=== PATIENT | female | born 1945 | race Caucasian/White ===

== ENCOUNTER 2019-11-06 05:36 | Outpatient (RCR) | payer MEDICARE, MEDICAID, SELFPAY ==
[2019-11-05 12:33] LABS: Basophils # 0.1 10^3/uL (0.0-0.1); Eosinophils # 0.3 10^3/uL (0.0-0.8); Eosinophils % 5.8 %; Hemoglobin 11.8 g/dL (11.5-15.3); Lymphocytes # 1.6 10^3/uL (0.8-4.8); Lymphocytes % 32.8 %; Mean Corpuscular HGB Conc 32.8 g/dL (30.0-36.0); Mean Corpuscular Hemoglobin 32.1 pg (28.0-34.0); Mean Corpuscular Volume 97.8 fL (81-99); Mean Platelet Volume 12.1 fL (7.4-10.4); Monocytes # 0.4 10^3/uL (0.2-0.9); Monocytes % 8.4 %; Neutrophils # 2.5 10^3/uL (1.8-7.7); Neutrophils % 51.8 %; Nucleated Red Blood Cells % 0 %; Platelet Count 44 10^3/cmm (130-400); Red Blood Count 3.68 10^6/uL (4.1-5.3); Red Cell Distribution Width 22.5 % (12.1-15.1); White Blood Count 4.8 10^3/uL (4.0-10.0)
== END 2019-11-07 23:59 | disposition home or self-care (01) ==
LOC: ONCMED 05:36
PROVIDERS: Family Provider Family Medicine; PCP Family Medicine; Visit Provider Internal Medicine Hematology & Oncology
DX: D69.6 Thrombocytopenia, unspecified (principal); J43.9 Emphysema, unspecified; F17.210 Nicotine dependence, cigarettes, uncomplicated; M40.209 Unspecified kyphosis, site unspecified; I51.7 Cardiomegaly; K44.9 Diaphragmatic hernia without obstruction or gangrene; I72.8 Aneurysm of other specified arteries; I71.4 Abdominal aortic aneurysm, without rupture; K74.60 Unspecified cirrhosis of liver; R18.8 Other ascites; N26.1 Atrophy of kidney (terminal); I50.9 Heart failure, unspecified; Z79.82 Long term (current) use of aspirin; Z95.1 Presence of aortocoronary bypass graft; Z87.01 Personal history of pneumonia (recurrent)
CPT/HCPCS: 85025; G0463

== ENCOUNTER 2019-11-08 02:07 | Emergency (ER) | payer MEDICARE, MEDICAID, SELFPAY ==
[2019-11-08 02:08] VITALS: BP 152/85; PULSE 56; RESP 20; TEMP 36.5; O2SAT 97; BMI 19.5
--- NOTE | 2019-11-08 02:13 | ED_ITS ---
Entered by Radha Fofana, acting as scribe for Homer Crespo DO Nov 08, 2019 02:07 HPI - Fall General: Chief Complaint: Fall Stated Complaint: FALL Time Seen by Provider: 11/08/19 02:13 Source: patient Mode of arrival: EMS Limitations: no limitations History of Present Illness: HPI Narrative: 74 yo f came to the er by [facility]. Onset was tonight. Pt states that she fell and hit her rt elbow and the top of her head. Pt states that she is not having a headache at this time. MD complaint: fall Onset (ago): day(s) (tonight) Fall from: out of bed Fall witnessed: no Place fall occurred: home Loss of consciousness: None Prolonged down time: unclear Symptoms prior to fall: none Location of injury: head and other (right elbow) Location of injury - extremities: Right: elbow Severity: mild Quality: burning and sharp Associated symptoms-after fall: Reports no associated symptoms; Denies abdominal pain, chest pain, headache(s), hematuria or neck pain Review of Systems Const: Denies: fever or chills Eyes: Denies: change in vision or blurry vision ENMT: Denies: dental pain Card: Reports: swelling of feet/ankles; Denies: chest pain, palpitations, irregular heart rhythm, edema, shortness of breath on exertion or shortness of breath when lying down Resp: Denies: shortness of breath, productive cough, non-productive cough or wheezing GI: Denies: abdominal pain, nausea, vomiting or rectal pain : Denies: painful urination or blood in urine Musc: Denies: neck pain, back pain, redness or joint warmth Skin/Breast: Denies: rash, itching or redness Neuro: Denies: headache Psych: Denies: anxiety, visual hallucinations or auditory hallucinations PFSH ED PFSH: Statuses (acute, chronic, etc) shown below reflect problem list status as previously entered and may not be historically accurate Social History Smoking and tobacco status: current every day smoker Physical Exam Const: ORIENTATION/CONSCIOUSNESS: Yes oriented to person, Yes oriented to place and Yes oriented to time HENMT: COMMON NORMALS: normocephalic, external ears normal and external nose normal HEAD & SCALP: normocephalic, contusion (Swelling to the right temporoparietal) and scalp tenderness FACE & SINUS: normal facial exam NOSE: external nose normal and no nasal discharge EXTERNAL EAR: Yes external ears normal MOUTH: tongue normal THROAT: posterior oropharynx normal; no peritonsillar mass Eye: COMMON NORMALS: PERRL, EOMs intact bilaterally and conjunctivae normal EYELID: eyelids normal CONJUNCTIVA: Yes conjunctivae normal PUPIL: Yes PERRL Neck/C-Spine: GENERAL: No tracheal deviation CERVICAL SPINE: No cervical spine tenderness Chest: COMMONS NORMALS: inspection of chest normal CHEST: No tenderness Resp: COMMON NORMALS: clear to auscultation bilaterally EFFORT & INSPECTION: No tachypneic, No respiratory distress, No retractions, No uses accessory muscles and No tracheal deviation AUSCULTATION: clear to auscultation bilaterally, no rhonchi, no wheezes and lung sounds not diminished Cardio: COMMON NORMALS: regular rate and regular rhythm RATE: regular rate RHYTHM: regular rhythm HEART SOUNDS: no murmurs PERIPHERAL PULSES: radial pulses present GI: INSPECTION: No abdominal distension AUSCULTATION: No hyperactive bowel sounds and No hypoactive bowel sounds PALPATION: No guarding and No rigid PERCUSSION: no dullness to percussion and no tympanic to percussion : COMMON NORMALS: Yes no CVA tenderness BLADDER/KIDNEY EXAM: Yes no CVA tenderness Back/Pelvis: COMMON NORMALS: no CVA tenderness Extremity: NARRATIVE EXTREMITY EXAM: Right elbow mild swelling. Skin avulsion over the lateral posterior elbow. Bleeding controlled. Range of motion is relatively asymptomatic. Neuro: SENSORIUM/ORIENTATION: Yes oriented to person, Yes oriented to place and Yes oriented to time Psych: COMMON NORMALS: mental status grossly normal Skin: COMMON NORMALS: no rashes or lesions noted GENERAL SKIN EXAM: no rashes or lesions noted Course ED course: Elbow x-rays are negative. Wound is cleaned, bandaged, stable. No bleeding to the scalp. Vital Signs: Vital signs: Vital Signs Temperature 97.7 F 11/08/19 02:08 Pulse Rate 51 L 11/08/19 05:08 Respiratory Rate 16 11/08/19 05:08 Blood Pressure 132/70 11/08/19 05:08 Pulse Oximetry 100 11/08/19 05:08 MDM - Fall Lab Data: Labs: Lab Results 11/08/19 Range/Units 02:37 Urine Color Yellow (Yellow) Urine Appearance Sl cloudy A (CLEAR) Urine pH 7 (5-7) Ur Specific Gravit y 1.010 (1.005-1.030) Urine Protein Neg (Negative) Urine Glucose (UA) Norm (Normal) Urine Ketones Negative (Negative) Urine Occult Blood 3+ H (Negative) Urine Nitrate Negative (Negative) Urine Bilirubin Neg (NEGATIVE) Urine Urobilinogen Norm (Negative) mg/dL Ur Leukocyte Rosina ase Negative (Negative) Urine RBC >100 H (0-2) /hpf Urine WBC 5-10 H (0-5) /hpf Ur Squamous Epith Cells 0-4 H (0-5) Urine Bacteria 1+ H (NONE) Discharge Plan Discharge Patient Disposition: Home, Self-Care Clinical Impression: Contusion of scalp Qualifiers: Encounter type: initial encounter Qualified Code(s): S00.03XA - Contusion of scalp, initial encounter Contusion of elbow, right Qualifiers: Encounter type: initial encounter Qualified Code(s): S50.01XA - Contusion of right elbow, initial encounter Avulsion of skin of elbow Qualifiers: Encounter type: initial encounter Laterality: right Qualified Code(s): S51.001A - Unspecified open wound of right elbow, initial encounter Condition: Stable Discharge Orders: Discharge Order (Routine); Ordered 11/08/19 Ordered By: Homer Crespo Referrals: Og Avery MD [Primary Care Provider] - Discharge Diet: Usual diet Discharge Activity: Resume usual activity Patient Instructions: Skin Avulsion (ED), Scalp Contusion in Adults (ED) Discharge Date/Time: 11/08/19 05:10 Coding Level of Care Code ED Prepress Manager for Chg Fwd The documentation recorded by the Brigido diaz Stephanie Lyn, accurately reflects the service I personally performed and the decisions made by Zak richardson Jeremy John, DO Nov 08, 2019 02:07
[2019-11-08 02:15] VITALS: BP 152/85; PULSE 53; RESP 14; O2SAT 100
--- NOTE | 2019-11-08 02:20 | XRR_ITS ---
PROCEDURE INFORMATION: Exam: XR Right Elbow Exam date and time: 11/08/2019 2:22 AM Age: 74 years old Clinical indication: Injury or trauma; Initial encounter; Abrasion; Right; Patient HX: Sp fall, skin tear RT elbow TECHNIQUE: Imaging protocol: XR Right elbow. Views: 3 or more views. COMPARISON: No relevant prior studies available. FINDINGS: No fractures or dislocations are seen. No significant bony abnormality is identified. No abnormal fat pad sign identified. No subcutaneous gas or radiopaque foreign body identified. XR/XR elbow RT min 3V* [id number] IMPRESSION: 1. No fractures or dislocations identified.
--- NOTE | 2019-11-08 02:20 | CTR_ITS ---
PROCEDURE INFORMATION: Exam: CT Head Without Contrast Exam date and time: 11/08/2019 2:22 AM Age: 74 years old Clinical indication: Injury or trauma; Fall; Initial encounter; Blunt trauma (contusions or hematomas); Without loss of consciousness TECHNIQUE: Imaging protocol: Computed tomography of the head without contrast. Total DLP: 771.28 mGy-cm Radiation optimization: All CT scans at this facility use at least one of these dose optimization techniques: automated exposure control; mA and/or kV adjustment per patient size (includes targeted exams where dose is matched to clinical indication); or iterative reconstruction. COMPARISON: No relevant prior studies available. FINDINGS: The ventricular system is within normal limits for size and configuration. There is moderate patchy hypodensity of the periventricular white matter. This is nonspecific, but a likely cause is small vessel ischemic disease. No abnormal intra-axial or extra-axial fluid collections are identified. There is no midline shift. No evidence of intracranial hemorrhage. The visualized bones are unremarkable. Large right frontal scalp hematoma. CT/CT head wo con* [id number] IMPRESSION: 1. No acute intracranial process identified. Radiation Dose CTDIVOL = (mGy): DLP = 771.28 (mGy-cm)
--- NOTE | 2019-11-08 02:40 | PC.NURSE ---
Patient stated that she needed to pee, with help from her nurse we placed her onto the bedpan. While placing the bedpan under her bottom her skin caught and caused a small skin tear. Nurse inspected the tear we removed the rodgers from underneath her and informed the charge nurse and the house father was also notified. An event report will be filed as well.
--- NOTE | 2019-11-08 03:13 | PC.NURSE ---
Patients skin wounds to right elbow and to the left wrist cleansed with normal saline 0.9% and peroxide. Patients wounds dressed with telfa, kerlix and coban.
[2019-11-08 03:32] VITALS: RESP 16; O2SAT 100
[2019-11-08 03:32] LABS: Add Urine Culture? Yes; Bacteria Urine 1+; Bilirubin Urine Neg (NEGATIVE); Blood Urine 3+ (Negative); Glucose Urine UA Norm (Normal); Ketones Urine Negative (Negative); Leukocyte Esterase Urine Negative (Negative); Nitrate Urine Negative (Negative); Protein Urine Neg (Negative); RBC Urine >100 /hpf (0-2); Squamous Epithelial Cell Urine 0-4 (0-5); Urine Color Yellow (Yellow); Urobilinogen Urine Norm (Negative); pH Urine 7 (5-7)
[2019-11-08] MEDS: oxyCODONE-APAP 5-325 mg Tablet 1 TAB PO (03:32)
[2019-11-08 03:34] VITALS: BP 145/73; PULSE 50; RESP 16; O2SAT 100
[2019-11-08 04:49] VITALS: BP 138/75; PULSE 50; RESP 14; O2SAT 100
[2019-11-08 05:08] VITALS: BP 132/70; PULSE 51; RESP 16; O2SAT 100
== END 2019-11-08 05:10 | disposition home or self-care (01) ==
PROVIDERS: Emergency Provider Emergency Medicine; Family Provider Family Medicine; PCP Family Medicine
DX: S00.03XA Contusion of scalp, initial encounter (principal); S50.01XA Contusion of right elbow, initial encounter; W19.XXXA Unspecified fall, initial encounter; F17.210 Nicotine dependence, cigarettes, uncomplicated
CPT/HCPCS: 70450; 73080; 81001; 87077; 87086; 87186; 99281; 99282; 99283; A9270

== ENCOUNTER 2019-12-03 05:39 | Outpatient (RCR) | payer MEDICARE, MEDICAID, SELFPAY ==
[2019-12-02 12:53] LABS: Basophils % 0.8 %; Eosinophils # 0.3 10^3/uL (0.0-0.8); Eosinophils % 5.1 %; Hematocrit 33.9 % (37.0-47.0); Hemoglobin 10.9 g/dL (11.5-15.3); Lymphocytes # 1.4 10^3/uL (0.8-4.8); Lymphocytes % 28.3 %; Mean Corpuscular HGB Conc 32.2 g/dL (30.0-36.0); Mean Corpuscular Hemoglobin 33.4 pg (28.0-34.0); Mean Platelet Volume 12.4 fL (7.4-10.4); Monocytes # 0.5 10^3/uL (0.2-0.9); Monocytes % 9.2 %; Neutrophils # 2.8 10^3/uL (1.8-7.7); Neutrophils % 56.4 %; Nucleated Red Blood Cells % 0 %; Platelet Count 57 10^3/cmm (130-400); Red Blood Count 3.26 10^6/uL (4.1-5.3); Red Cell Distribution Width 22.1 % (12.1-15.1); White Blood Count 4.9 10^3/uL (4.0-10.0)
--- NOTE | 2019-12-03 14:41 | ONC FU_ITS ---
Dr. Lowe follow up note Patient: Carolin Albarran Unit #: [id number]: [id number] Dicatated By: Alhaji Lowe M.D.Date of Visit:Dec 03, 2019 Onc Med Follow-up/Prog Note History of Present Illness: This 74 year old patient has emphysema and heart disease. She has had mild thrombocytopenia for 4 years. It appears to be non-progressive. and does not consume alcohol in excess. She does smoke approximately 1ppd cigarettes for >50 years. She had some hemoptysis 2 years ago and found to have an aneurysm. She has back pain from significant kyphosis. CT scan performed 01/15/17 showed a suspicious pulmonary parenchymal nodule, anterior basal segment of the right lower lobe. There was extensive atherosclerotic cardiovascular and peripheral vascular changes, which included: A) Cardiomegaly and prior coronary bypass grafting. 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 C) Aneurysms of the descending thoracic aorta. D) Supra and large infrarenal aneurysms of the abdominal aorta with the infrarenal aneurysm incompletely included. 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 Recently done CT scan of chest abdomen pelvis on 01/08/2019 showed right lower lobe and inferior right middle lobe infiltrate suspicious for pneumonia, moderate hiatal hernia, moderate centrilobular emphysema. Approximately 3 cm diameter aneurysm of proximal left subclavian artery again seen. Approximately 6 cm diameter juxtarenal and infrarenal abdominal aortic aneurysm without interval change since 01/19/2018 Low volume pelvic ascites Hepatic cirrhosis again seen. Punctate hepatic calcification. Next Spleen, punctate splenic calcification Patient was admitted to hospital on 01/08/2019 with acute congestive heart failure and her admission lab workup showed platelet count around 50,000 with a normal hemoglobin and white blood cells repeat labs at the time of discharge shows platelet count improved to 67,000 while maintaining white blood count and hemoglobin normal range. And her repeat CBC done on 01/23/2019 showed platelet count improved to baseline e.g. 94,000, with white blood count 6.4 hemoglobin 12.6 hematocrit 38.1. Abdominal sonogram done on 05/12/2019 showed moderately severe changes of cirrhosis with no hepatic mass identified. Top normal spleen with granulomata. Large abdominal aortic aneurysm, no change CTA abdomen/pelvis done on 04/05/2019 showed nodular shrunken contour of the liver compatible with cirrhosis numerous calcified granulomas in non-enlarged spleen. Large abdominal aortic aneurysm stable from 01/08/2019 Bone marrow aspiration and biopsy done on 07/31/2019 showed normocellular marrow for age with trilineage hematopoiesis. Next Mildly increased megakaryocytes, mild erythroid hyperplasia. No overt dyspoietic or megaloblastic changes seen Markedly decreased storage iron without getting sideroblasts slightly increased scattered polytypic plasma cells noted. But flow cytometry did not detect any aberrant plasma cell population MDS FISH is pending Cytogenetic is normal findings. Patient had a fall and sustained facial injury with extensive ecchymosis and swelling, swelling is resolved. Patient denies any seizure-like activity patient says she was getting out of her bed and tip over her walker. Because of persistent moderate thrombocytopenia started on prednisone 50 mg by mouth daily along with nystatin swish and spit on 12/03/2019 Came for follow-up, denies any specific complaint except episode of fall at home and sustained facial injury now recovering. But no melena or hematochezia, no nosebleed no gum bleed, no jaundice, no petechiae but old healing ecchymosis. Medications: Aspirin 1 Tablet (of 81 mg) Oral daily, Hydrocodone-Acetaminophen 1 - 2 (10-325 mg) Tablet Oral b.i.d. PRN, Lasix 1 Tablet (of 40 mg) Oral b.i.d., Metoprolol Tartrate 0.5 - 1 (25 mg) Tablet Oral b.i.d., Morphine Sulfate 1 (15 mg) Tablet Oral b.i.d. PRN, Omeprazole 1 (20 mg) Tablet, enteric coated Oral daily, Potassium Chloride ER 0.5 Tablet (of 20 ) Tablet, controlled release Oral daily Allergies: Darvocet, Erythromycin Base, Nitrobid, and Tetracycline HCl. Review of Systems: Constitutional - Appetite is fair and weight is stable. No fever, chills, hot flashes or night sweats. Energy is poor, ENMT - No sinus congestion/drainage. No mouth sores. No sore throat or difficulty swallowing, Hematologic/Lymphatic - She bruises easily, Respiratory - Positive for shortness of breath (Pt wears oxygen). Positive for occasional cough. Occasional bloody sputum, Cardiovascular - No angina pain. No palpitations, Gastrointestinal - No nausea or vomiting. No heartburn or acid reflux. No diarrhea or constipation. No blood in the stool or black stools, Genitourinary (F) - No dysuria or hematuria. No urinary frequency. No urgency or incontinence, Musculoskeletal - No joint or bone pain, Integumentary - Pt recently fell and has a severely bruised face at visit today, Neurologic - No headache or dizziness. No numbness/paresthesias or other focal neurologic symptoms, Psychiatric - No anxiety or depression. No insomnia. Vital Signs: Vitals are not available for this patient. Performance Status: 2 - Ambulatory/capable of all self-care, unable to perform any work activities. Up and about more than 50% of waking hours. (ECOG) Physical Examination: ENMT - No oral exudates, ulcers, masses, thrush or mucositis. Oropharynx clear. Tongue normal, Respiratory - poor air entry, Cardiovascular - Regular rate and rhythm of heart, Abdomen - Non-tender, non-distended,liver palpable below rib cage Good bowel sounds. No guarding or rebound tenderness. No pulsatile masses, Extremities - 2+ edema bilaterally. Lab/Imaging: Test performed on Nov 05, 2019 08:50 WBC 4.8 10 3/uL RBC 3.68 10 6/uL HGB 11.8 g/dL HCT 36.0 % MCV 97.8 fL MCH 32.1 pg MCHC 32.8 g/dL RDW 22.5 % Platelet Count 44 10 3/cmm MPV 12.1 fL Neutrophils 2.5 10 3/uL Lymphocytes 1.6 10 3/uL Monocytes 0.4 10 3/uL Eosinophils 0.3 10 3/uL Basophils 0.1 10 3/uL Neutrophil % 51.8 % Lymphocyte % 32.8 % Monocyte % 8.4 % Eosinophil % 5.8 % Basophils % 1.0 % Test performed on Sep 15, 2019 10:10 Ferritin 83.0 ng/ml Iron 163 ug/dL % Iron Saturation 64.0 % UIBC 91 ug/dL Test performed on Jul 31, 2019 11:06 Flow Cytometry - Lymphoma SEE SCANNED REPORT SEE SCANNED REPORT Impression: asymptomatic, mild, stable isolated thrombocytopenia.Etiology unclear, could be low-grade ITP, hypersplenism due to underlying congestive heart failure, As bone marrow done recently showed appropriate response to thrombocytopenia e.g. increased megakaryocytes elevated total protein. Polyclonal elevation in gamma globulins ch renal insuff. Infrarenal AAA thoracic aoortic aneurysm chronic obstructiv pulmonary disease left renal atrophy CT scan performed 01/15/17 showed a suspicious pulmonary parenchymal nodule, anterior basal segment of the right lower lobe. Follow-up CT scan of chest abdomen pelvis done on 01/08/2019 showed persistent proximal left subclavian artery aneurysm and emphysema Hepatic cirrhosis again identified Abdominal sonogram done 05/12/2019 showed moderately severe changes of cirrhosis with no hepatic mass identified. Top normal spleen with granulomata Large abdominal aortic aneurysm stable Spleen, punctate splenic calcification, not mentioned about size of the spleen Plan: Discussed with patient regarding her labs white blood count 4.9 hemoglobin 10.9 crit 33.9 platelets 57,000 Clinically, patient is doing reasonably well, her follow-up lab shows persistent moderate thrombocytopenia, her baseline is around 90,000 but now fluctuating between 44,000 and 88,000. She may have multifactorial etiology which include splenic sequestration and possibly low-grade ITP which can explain fluctuation in her platelets count as bone marrow showed increased megakaryocytes e.g. appropriate response. We will give her trial of steroids to control/treat possible ITP.all the side effect possible benefits associated with steroids including but not limited to oral thrush, hyperglycemia, heartburn indigestion, were discussed We will give her prednisone 1 mg/kg e.g. 50 mg by mouth daily along with nystatin to prevent oral thrush and patient was advised to monitor her blood sugar, patient has no history of hyperglycemia or diabetes She will return to clinic in 1 week with CBC Signed By: Alhaji Lowe M.D. <<Signature on File>>
== END 2019-12-06 23:59 | disposition home or self-care (01) ==
LOC: ONCMED 05:39
PROVIDERS: Family Provider Family Medicine; PCP Family Medicine; Visit Provider Internal Medicine Hematology & Oncology
DX: D69.6 Thrombocytopenia, unspecified (principal); J43.9 Emphysema, unspecified; F17.210 Nicotine dependence, cigarettes, uncomplicated; M40.209 Unspecified kyphosis, site unspecified; K44.9 Diaphragmatic hernia without obstruction or gangrene; I71.4 Abdominal aortic aneurysm, without rupture; K74.60 Unspecified cirrhosis of liver; N18.9 Chronic kidney disease, unspecified; I71.2 Thoracic aortic aneurysm, without rupture; Z79.82 Long term (current) use of aspirin; Z99.81 Dependence on supplemental oxygen
CPT/HCPCS: 36415; 85025; 99214

== ENCOUNTER 2019-12-12 12:32 | Outpatient (RCR) | payer MEDICARE, MEDICAID, SELFPAY ==
[2019-12-12 11:06] LABS: Basophils % 0.7 %; Eosinophils # 0.3 10^3/uL (0.0-0.8); Hematocrit 31.9 % (37.0-47.0); Lymphocytes # 1.1 10^3/uL (0.8-4.8); Lymphocytes % 17.9 %; Mean Corpuscular HGB Conc 31.3 g/dL (30.0-36.0); Mean Corpuscular Hemoglobin 33.8 pg (28.0-34.0); Mean Corpuscular Volume 107.8 fL (81-99); Mean Platelet Volume 13.3 fL (7.4-10.4); Monocytes # 0.6 10^3/uL (0.2-0.9); Monocytes % 10.1 %; Nucleated Red Blood Cells % 0 %; Platelet Count 56 10^3/cmm (130-400); Red Blood Count 2.96 10^6/uL (4.1-5.3); Red Cell Distribution Width 18.7 % (12.1-15.1); White Blood Count 6.1 10^3/uL (4.0-10.0)
== END 2019-12-12 23:59 | disposition home or self-care (01) ==
LOC: ONCMED 12:32
PROVIDERS: Family Provider Family Medicine; PCP Family Medicine; Visit Provider Internal Medicine Hematology & Oncology
DX: D69.6 Thrombocytopenia, unspecified (principal)
CPT/HCPCS: 85025

== ENCOUNTER 2019-12-13 20:01 | Emergency (ER) | payer MEDICARE, MEDICAID, SELFPAY ==
[2019-12-13 20:04] VITALS: BP 154/92; PULSE 71; RESP 18; TEMP 37.1; O2SAT 94; BMI 20.2
--- NOTE | 2019-12-13 20:15 | XR_ITS ---
WS: [id number] XR knee LT 3V* [id number] REASON FOR EXAM: PAIN FINDINGS: Soft tissue swelling of the knee is noted. The meniscal spaces are normal bilaterally. There is no fractures of the patella, femur, tibia, or fibula. There is heavy arteriosclerotic changes. The patella femoral articulation normal The patella tibial space is normal. There is spurring off the patella. XR/XR knee LT 3V* [id number] IMPRESSION: Soft tissue swelling surrounding the knee.
--- NOTE | 2019-12-13 20:15 | USR_ITS ---
PROCEDURE INFORMATION: Exam: US Duplex Left Lower Extremity Veins, Limited Exam date and time: 12/13/2019 8:47 PM Age: 74 years old Clinical indication: Swelling (edema) of limb; Lower extremity, left; Prior surgery; Surgery date: 6+ months; Surgery type: Lt gsv removed for cabg; Patient HX: PT fell. No fxs seen; Additional info: Pain/swelling TECHNIQUE: Imaging protocol: Real-time Duplex ultrasound of the Left Lower Extremity with 2-D pisano scale, color Doppler flow and spectral waveform analysis with image documentation. Limited exam focused on the left lower extremity veins. COMPARISON: US ROR venous duplex [facility] 11/14/2018 1:49 PM FINDINGS: Evaluated veins include the left common femoral, proximal profunda femoral, proximal/mid/distal superficial femoral, popliteal, posterior tibial, and peroneal veins. No visible clot in the included veins. The included veins appear normally compressible. Duplex Doppler evaluation demonstrates flow in the evaluated veins. US/CV venous duplex [facility] [id number] IMPRESSION: No evidence of acute left lower extremity DVT.
--- NOTE | 2019-12-13 20:15 | XR_ITS ---
WS: [id number] XR femur LT min 2V* [id number] REASON FOR EXAM: PAIN/INJURY FINDINGS: The femurs found to be intact there is no fractures of the proximal heart distal femur. The re is arteriosclerotic changes seen. XR/XR femur LT min 2V* [id number] IMPRESSION: Negative femur Arteriosclerotic changes.
--- NOTE | 2019-12-13 20:22 | ED_ITS ---
Entered by Laila Reddy, acting as scribe for Riya Soares HPI - Extremity Problem General: Chief complaint: Extremity Injury, Lower Stated complaint: fall Time Seen by Provider: 12/13/19 20:12 History of Present Illness: HPI Narrative: 74 yo female presents to ED with complaints of LLE pain and swelling. She states she fell 5 weeks ago on 11.08.2019. She said she has had no other injuries since that time, but 1 week ago she woke with pain and discomfort in her L thigh and L knee. Complaint: extremity pain and extremity swelling Onset (ago): week(s) (1) Pain Consistency: constant Location: left and lower extremity Quality: aching Radiation: none Relieving factors: nothing Exacerbating factors: nothing Associated symptoms: Reports no associated symptoms; Deny chest pain, fever(s) or rash Context: other (recent fall (5 weeks ago)) Review of Systems General: Reports: other (negative unless marked) Const: Denies: fever, chills, body aches, fatigue, malaise or diaphoresis Eyes: Denies: change in vision or blurry vision ENMT: Denies: throat pain, painful swallowing, hoarseness, ear pain, ear discharge, Change in hearing or nasal discharge Card: Denies: chest pain, palpitations, irregular heart rhythm, syncope, pre- syncope, shortness of breath on exertion or shortness of breath when lying down Resp: Denies: shortness of breath, productive cough, non-productive cough, wheezing, coughing up blood or chest congestion GI: Denies: abdominal pain, nausea, vomiting, vomiting blood, coffee grounds in vomit, diarrhea, constipation, cramping, blood in stool or black tarry stool : Denies: flank pain, painful urination, urinary frequency, urinary urgency, decreased urine ouput, urinary incontinence or blood in urine Musc: Denies: neck pain, back pain, joint pain, joint swelling, joint warmth or joint stiffness Skin/Breast: Denies: rash, skin tenderness or yellow skin Neuro: Denies: headache, numbness in extremities, weakness in extremities, changes in sensation, lack of coordination, difficulty walking, dizziness, vertigo or confusion Endo: Denies: excessive thirst, tired all the time, cold intolerance, excessive sweating, flushing or hot flashes Alverto/Lymph: Denies: easy bruising, easy bleeding, petechiae or enlarged lymph nodes All/Imm: Denies: hives, throat swelling, tongue swelling, facial swelling or acute wheezing PFSH ED PFSH: Social History Smoking and tobacco status: current every day smoker Physical Exam Const: COMMON NORMALS: no apparent distress, oriented x3, no limitations, healthy appearing and well nourished EXAM LIMITATIONS: no altered mental status GENERAL APPEARANCE: cooperative, well kempt and well developed ORIENTATION/CONSCIOUSNESS: Yes awake HENMT: COMMON NORMALS: normocephalic, head/scalp atraumatic, hearing grossly normal bilaterally, external ears normal, EAC's normal, external nose normal and moist oral mucous membranes HEAD & SCALP: normal to inspection, normocephalic and atraumatic FACE & SINUS: normal facial exam and face symmetric NOSE: external nose normal and nares normal EXTERNAL EAR: Yes external ears normal EXTERNAL AUDITORY CANAL: EAC's normal MOUTH: oral and palatal mucosa normal and tongue normal Eye: COMMON NORMALS: PERRL, EOMs intact bilaterally, conjunctivae normal and no scleral icterus GENERAL EYE: normal appearance of both eyes and normal light reflex CONJUNCTIVA: Yes conjunctivae normal SCLERA: sclerae normal CORNEA: Yes corneas normal PUPIL: Yes PERRL DIRECT OPHTHALMOSCOPY: Yes normal light reflex Neck/C-Spine: COMMON NORMALS: full ROM, no lymphadenopathy, supple, no meningeal signs and no JVD GENERAL: Yes normal visual inspection and Yes trachea midline CERVICAL SPINE: Yes cervical ROM normal Chest: COMMONS NORMALS: inspection of chest normal and palpation of chest normal Resp: COMMON NORMALS: normal respiratory effort, no retractions, no use of accessory muscles and clear to auscultation bilaterally EFFORT & INSPECTION: Yes able to speak in complete sentences AUSCULTATION: clear to auscultation bilaterally Cardio: COMMON NORMALS: no JVD, regular rate, regular rhythm, S1 normal heart sound, S2 normal heart sound, no gallops, no clicks, no murmurs and no rub JUGULAR VENOUS DISTENTION: no JVD RATE: regular rate RHYTHM: regular rhythm HEART SOUNDS: S1 normal and S2 normal GI: COMMON NORMALS: soft to palpation, non-tender, no hepatosplenomegaly and no masses INSPECTION: Yes normal to inspection PALPATION: Yes soft and Yes no hepatosplenomegaly : COMMON NORMALS: Yes no CVA tenderness BLADDER/KIDNEY EXAM: Yes no CVA tenderness Back/Pelvis: COMMON NORMALS: no CVA tenderness, thoracic and lumbar spine normal to inspection, no thoracic nor lumbar tenderness and thoraco-lumbar ROM normal Extremity: COMMON NORMALS: normal to inspection, full ROM, normal capillary refill, no joint enlargement, no clubbing, cyanosis or edema and no calf tenderness LEFT LOWER EXTREMITY: Yes upper leg and Yes knee joint Neuro: COMMON NORMALS: oriented x3, CN's II-XII intact bilaterally, moves all extremities, no focal motor deficits and no sensory deficits noted MENINGEAL SIGNS: Yes no meningeal signs Psych: COMMON NORMALS: mental status grossly normal, thought process normal, cooperative, affect normal, speech normal and activity/motor behavior normal APPEARANCE: Yes well kempt SPEECH: Yes normal speech THOUGHT PROCESS: normal thought process Skin: COMMON NORMALS: no rashes or lesions noted, skin turgor normal, no jaundice, no petechiae and no mottling GENERAL SKIN EXAM: no rashes or lesions noted and turgor normal Course Consultations: Consultation #1: Voice message left for Dr Lowe to return call. Time: 21:52 Vital Signs: Vital signs: Vital Signs Temperature 98.7 F 12/13/19 20:04 Pulse Rate 16 L 12/13/19 22:45 Respiratory Rate 72 H 12/13/19 22:45 Blood Pressure 166/82 12/13/19 22:45 Pulse Oximetry 97 12/13/19 22:45 MDM - Extremity (Nontraumatic) MDM Narrative: Medical decision making narrative: Carolin is a 74-year-old female who comes in with a complaint of left lower extremity bruising and pain. She does not remember a distinct injury but she does state it is possible. She has no sign of TTP other than the ecchymosis to the leg. 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 She does admit down to taking NSAIDs at times. I reviewed the case in full with Dr. Lowe her liner machine operator helper and he said it is likely the result of minuscule trauma along with NSAID use with ITP. He states his longest is only 1 extremity the patient can be discharged home. After thorough review there is no evidence of any new bruising other than to the face which has been present for quite some time. Nonetheless I did offer the patient an admission to the hospital for observation to see Dr. Lowe in the morning but she refused. She wants to go home and agrees to return should her symptoms worsen but she has an appointment to see Dr. Lowe on Sunday and she thinks this will work for her. The patient was warned that she was also welcome to to return. Lab Data: Attestation: I reviewed the patient's lab results. Labs: Lab Results 12/13/19 12/13/19 12/13/19 Range/Units 20:31 20:31 20:31 WBC 5.6 (4.0-10.0) 10^3/ uL RBC 3.24 L (4.1-5.3) 10^6/u L Hgb 10.2 L (11.5-15.3) g/dL Hct 34.0 L (37.0-47.0) % MCV 104.9 H (81-99) fL MCH 31.5 (28.0-34.0) pg MCHC 30.0 (30.0-36.0) g/dL RDW 18.5 H (12.1-15.1) % Plt Count 58 L (130-400) 10^3/c mm MPV 11.8 H (7.4-10.4) fL Neut % (Auto) 60.2 % Lymph % (Auto) 20.9 % Parke % (Auto) 13.0 % Eos % (Auto) 4.8 % Baso % (Auto) 0.7 % Neut # (Auto) 3.4 (1.8-7.7) 10^3/u L Lymph # (Auto) 1.2 (0.8-4.8) 10^3/u L Parke # (Auto) 0.7 (0.2-0.9) 10^3/u L Eos # (Auto) 0.3 (0.0-0.8) 10^3/u L Baso # (Auto) 0.0 (0.0-0.1) 10^3/u L Nucleated RBC % (a uto) 0 % Nucleated RBCs # 0.0 /100WBC PT 14.80 H (10.5-13.3) SECO NDS INR 1.13 (0.8-1.2) APTT 33.2 (23.9-36.7) SECO NDS Sodium 137 (136-145) mmol/L Potassium 3.3 L (3.5-5.1) mmol/L Chloride 99 (98-107) mmol/L Carbon Dioxide 26 (22-29) mmol/L Anion Gap 15.3 (5-19) BUN 28 H (8-23) mg/dL Creatinine 1.6 H (0.5-0.9) mg/dL Glucose 112 (65-115) mg/dL Calcium 9.0 (8.5-10.5) mg/dL Magnesium (1.7-2.3) mg/dL Total Bilirubin 1.0 (0.15-1.2) mg/dL AST 23 (0-32) U/L ALT 10 (0-33) U/L Alkaline Phosphata se 109 H (35-105) IU/L Total Protein 8.6 (6.6-8.7) g/dL Albumin 3.9 (3.5-5.2) g/dL Globulin 4.7 H (1.3-4.6) g/dL Urine Color (Yellow) Urine Appearance (CLEAR) Urine pH (5-7) Ur Specific Gravit y (1.005-1.030) Urine Protein (Negative) Urine Glucose (UA) (Normal) Urine Ketones (Negative) Urine Blood (Negative) Urine Nitrate (Negative) Urine Bilirubin (NEGATIVE) Urine Urobilinogen (Negative) mg/dL Ur Leukocyte Rosina ase (Negative) Urine RBC (0-2) /hpf Urine WBC (0-5) /hpf Ur Squamous Epith Cells (0-5) Urine Bacteria (NONE) 12/13/19 12/13/19 Range/Units 20:31 21:25 WBC (4.0-10.0) 10^3/ uL RBC (4.1-5.3) 10^6/u L Hgb (11.5-15.3) g/dL Hct (37.0-47.0) % MCV (81-99) fL MCH (28.0-34.0) pg MCHC (30.0-36.0) g/dL RDW (12.1-15.1) % Plt Count (130-400) 10^3/c mm MPV (7.4-10.4) fL Neut % (Auto) % Lymph % (Auto) % Parke % (Auto) % Eos % (Auto) % Baso % (Auto) % Neut # (Auto) (1.8-7.7) 10^3/u L Lymph # (Auto) (0.8-4.8) 10^3/u L Parke # (Auto) (0.2-0.9) 10^3/u L Eos # (Auto) (0.0-0.8) 10^3/u L Baso # (Auto) (0.0-0.1) 10^3/u L Nucleated RBC % (a uto) % Nucleated RBCs # /100WBC PT (10.5-13.3) SECO NDS INR (0.8-1.2) APTT (23.9-36.7) SECO NDS Sodium (136-145) mmol/L Potassium (3.5-5.1) mmol/L Chloride (98-107) mmol/L Carbon Dioxide (22-29) mmol/L Anion Gap (5-19) BUN (8-23) mg/dL Creatinine (0.5-0.9) mg/dL Glucose (65-115) mg/dL Calcium (8.5-10.5) mg/dL Magnesium 2.5 H (1.7-2.3) mg/dL Total Bilirubin (0.15-1.2) mg/dL AST (0-32) U/L ALT (0-33) U/L Alkaline Phosphata se (35-105) IU/L Total Protein (6.6-8.7) g/dL Albumin (3.5-5.2) g/dL Globulin (1.3-4.6) g/dL Urine Color Yellow (Yellow) Urine Appearance Clear (CLEAR) Urine pH 7 (5-7) Ur Specific Gravit y 1.015 (1.005-1.030) Urine Protein Neg (Negative) Urine Glucose (UA) Norm (Normal) Urine Ketones Negative (Negative) Urine Blood Neg (Negative) Urine Nitrate Negative (Negative) Urine Bilirubin 1+ H (NEGATIVE) Urine Urobilinogen Norm (Negative) mg/dL Ur Leukocyte Rosina ase Negative (Negative) Urine RBC 0-4 H (0-2) /hpf Urine WBC 0-4 H (0-5) /hpf Ur Squamous Epith Cells 5-10 H (0-5) Urine Bacteria 1+ H (NONE) Imaging Data^: Xray Ortho: My impression: Left femur -no acute findings. Left knee -no acute findings. Other Imaging: Radiologist's impression: [facility] [address] [place] [address] Ultrasound Report Signed Patient: Carolin Albarran #: [id number] : 7Acct#:[id number] Age/Sex: 74 / FADM Date: 12/13/19 Loc: ERRoom/Bed: Attending Dr: Ordering Provider/Ordering MD: Riya Soares DO Date of Service: 12/13/19 Procedure(s): [place] [address] Accession Number(s): [id number] Report Number: [id number] PROCEDURE INFORMATION: Exam: US Duplex Left Lower Extremity Veins, Limited Exam date and time: 12/13/2019 8:47 PM Age: 74 years old Clinical indication: Swelling (edema) of limb; Lower extremity, left; Prior surgery; Surgery date: 6+ months; Surgery type: Lt gsv removed for cabg; Patient HX: PT fell. No fxs seen; Additional info: Pain/swelling TECHNIQUE: Imaging protocol: Real-time Duplex ultrasound of the Left Lower Extremity with 2-D pisano scale, color Doppler flow and spectral waveform analysis with image documentation. Limited exam focused on the left lower extremity veins. COMPARISON: US ROR venous duplex [facility] 11/14/2018 1:49 PM FINDINGS: Evaluated veins include the left common femoral, proximal profunda femoral, proximal/mid/distal superficial femoral, popliteal, posterior tibial, and peroneal veins. No visible clot in the included veins. The included veins appear normally compressible. Duplex Doppler evaluation demonstrates flow in the evaluated veins. US/[place] [address] IMPRESSION: No evidence of acute left lower extremity DVT. Dictated By:Daniel Marlow MD Signed By:Daniel Marlow MDSigned Date/Time:12/13/192217 DD/ Discharge Plan Discharge Patient Disposition: Home, Self-Care Clinical Impression: Contusion Qualifiers: Encounter type: initial encounter Contusion area: knee Laterality: left Qualified Code(s): S80.02XA - Contusion of left knee, initial encounter Condition: Stable Prescriptions: No Action Unable to Assess RF: 0 Discharge Orders: Discharge Order (Routine); Ordered 12/13/19 Ordered By: Riya Soares Referrals: Og Avery MD [Primary Care Provider] - 1-3 days Alhaji Lowe MD [Staff Physician] - 1-3 days Discharge Diet: Advance as tolerated Discharge Activity: Increase activity as tolerated Patient Instructions: Contusion in Adults (ED) Activity Restrictions/Additional Instructions: Please return to the ER immediately for any of the signs or symptoms listed on your discharge instruction sheets, worsening/changing of your symptoms, you are not getting better as quickly as expected, or for ANY other cause or concerns. Discharge Date/Time: 12/13/19 22:47 Coding Level of Care Code ED Project Management Professional for Chg Fwd Exam Comprehensive The documentation recorded by the Maureen diaz Valerie R, accurately reflects the service I personally performed and the decisions made by Rodger richardson Eli N Dec 13, 2019 20:01
[2019-12-13 21:23] LABS: Basophils % 0.7 %; Eosinophils # 0.3 10^3/uL (0.0-0.8); Eosinophils % 4.8 %; Hemoglobin 10.2 g/dL (11.5-15.3); Lymphocytes # 1.2 10^3/uL (0.8-4.8); Lymphocytes % 20.9 %; Mean Corpuscular Hemoglobin 31.5 pg (28.0-34.0); Mean Corpuscular Volume 104.9 fL (81-99); Mean Platelet Volume 11.8 fL (7.4-10.4); Monocytes # 0.7 10^3/uL (0.2-0.9); Neutrophils # 3.4 10^3/uL (1.8-7.7); Neutrophils % 60.2 %; Nucleated Red Blood Cells % 0 %; Platelet Count 58 10^3/cmm (130-400); Red Blood Count 3.24 10^6/uL (4.1-5.3); Red Cell Distribution Width 18.5 % (12.1-15.1); White Blood Count 5.6 10^3/uL (4.0-10.0)
[2019-12-13 21:32] LABS: INR 1.13 (0.8-1.2)
[2019-12-13 21:33] LABS: Partial Thromboplastin Time 33.2 SECONDS (23.9-36.7)
[2019-12-13 21:36] LABS: Alanine Aminotransferase 10 U/L (0-33); Albumin Level 3.9 g/dL (3.5-5.2); Alkaline Phosphatase 109 IU/L (35-105); Anion Gap 15.3 (5-19); Aspartate Amino Transferase 23 U/L (0-32); Blood Urea Nitrogen 28 mg/dL (8-23); Carbon Dioxide 26 mmol/L (22-29); Chloride 99 mmol/L (98-107); Globulin 4.7 g/dL (1.3-4.6); Glucose 112 mg/dL (65-115); Potassium 3.3 mmol/L (3.5-5.1); Sodium 137 mmol/L (136-145); Total Protein 8.6 g/dL (6.6-8.7)
[2019-12-13 22:04] LABS: Bacteria Urine 1+; Bilirubin Urine 1+ (NEGATIVE); Blood Urine Neg (Negative); Glucose Urine UA Norm (Normal); Ketones Urine Negative (Negative); Leukocyte Esterase Urine Negative (Negative); Nitrate Urine Negative (Negative); Protein Urine Neg (Negative); RBC Urine 0-4 /hpf (0-2); Specific Gravity, Urine 1.015 (1.005-1.030); Urine Appearance Clear (CLEAR); Urine Color Yellow (Yellow); Urobilinogen Urine Norm (Negative); WBC Urine 0-4 /hpf (0-5); pH Urine 7 (5-7)
[2019-12-13 22:17] LABS: Magnesium 2.5 mg/dL (1.7-2.3)
[2019-12-13 22:45] VITALS: BP 166/82; PULSE 16; RESP 72; O2SAT 97
--- NOTE | 2019-12-13 22:45 | PC.NURSE ---
Patient dc'd home in stable condition via wheelchair. Discharge papers given and explained to patient with all questions asked and answered.
== END 2019-12-13 22:47 | disposition home or self-care (01) ==
PROVIDERS: Emergency Provider Emergency Medicine; Family Provider Family Medicine; PCP Family Medicine
DX: S80.12XA Contusion of left lower leg, initial encounter (principal); F17.200 Nicotine dependence, unspecified, uncomplicated; X58.XXXA Exposure to other specified factors, initial encounter
CPT/HCPCS: 12345; 73552; 73562; 80053; 81001; 83735; 85025; 85610; 85730; 93971; 99282; 99283

== ENCOUNTER 2019-12-16 05:49 | Outpatient (RCR) | payer MEDICARE, MEDICAID, SELFPAY ==
--- NOTE | 2019-12-16 16:32 | ONC FU_ITS ---
Dr. Lowe follow up note Patient: Carolin Albarran Unit #: [id number]: [id number] Dicatated By: Alhaji Lowe M.D.Date of Visit:Dec 16, 2019 Onc Med Follow-up/Prog Note History of Present Illness: This 74 year old patient has emphysema and heart disease. She has had mild thrombocytopenia for 4 years. It appears to be non-progressive. and does not consume alcohol in excess. She does smoke approximately 1ppd cigarettes for >50 years. She had some hemoptysis 2 years ago and found to have an aneurysm. She has back pain from significant kyphosis. CT scan performed 01/15/17 showed a suspicious pulmonary parenchymal nodule, anterior basal segment of the right lower lobe. There was extensive atherosclerotic cardiovascular and peripheral vascular changes, which included: A) Cardiomegaly and prior coronary bypass grafting. 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 C) Aneurysms of the descending thoracic aorta. D) Supra and large infrarenal aneurysms of the abdominal aorta with the infrarenal aneurysm incompletely included. 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 Recently done CT scan of chest abdomen pelvis on 01/08/2019 showed right lower lobe and inferior right middle lobe infiltrate suspicious for pneumonia, moderate hiatal hernia, moderate centrilobular emphysema. Approximately 3 cm diameter aneurysm of proximal left subclavian artery again seen. Approximately 6 cm diameter juxtarenal and infrarenal abdominal aortic aneurysm without interval change since 01/19/2018 Low volume pelvic ascites Hepatic cirrhosis again seen. Punctate hepatic calcification. Next Spleen, punctate splenic calcification Patient was admitted to hospital on 01/08/2019 with acute congestive heart failure and her admission lab workup showed platelet count around 50,000 with a normal hemoglobin and white blood cells repeat labs at the time of discharge shows platelet count improved to 67,000 while maintaining white blood count and hemoglobin normal range. And her repeat CBC done on 01/23/2019 showed platelet count improved to baseline e.g. 94,000, with white blood count 6.4 hemoglobin 12.6 hematocrit 38.1. Abdominal sonogram done on 05/12/2019 showed moderately severe changes of cirrhosis with no hepatic mass identified. Top normal spleen with granulomata. Large abdominal aortic aneurysm, no change CTA abdomen/pelvis done on 04/05/2019 showed nodular shrunken contour of the liver compatible with cirrhosis numerous calcified granulomas in non-enlarged spleen. Large abdominal aortic aneurysm stable from 01/08/2019 Bone marrow aspiration and biopsy done on 07/31/2019 showed normocellular marrow for age with trilineage hematopoiesis. Next Mildly increased megakaryocytes, mild erythroid hyperplasia. No overt dyspoietic or megaloblastic changes seen Markedly decreased storage iron without getting sideroblasts slightly increased scattered polytypic plasma cells noted. But flow cytometry did not detect any aberrant plasma cell population MDS FISH is pending Cytogenetic is normal findings. Patient had a fall and sustained facial injury with extensive ecchymosis and swelling, swelling is resolved. Patient denies any seizure-like activity patient says she was getting out of her bed and tip over her walker. Because of persistent moderate thrombocytopenia started on prednisone 50 mg by mouth daily along with nystatin swish and spit on 12/03/2019 , patient took it for 4 days, as per patient she developed left leg redness and swelling become more prominent she went to emergency room on 12/13/2019 with left knee ecchymosis and petechiae involving left leg only again patient has history of fall sustained facial injury and as per patient she felt on the right side at time and denies any trauma to left leg this time. In [facility] ER she underwent left leg venous Doppler study which showed no evidence of DVT. came for follow-up, complaining of left leg discoloration and more on the left knee and some redness in the left lower leg. But no pain or discomfort patient denies any insect bite or fall or injury to left leg patient denies any redness or discoloration on the right leg patient denies any discoloration anywhere else in the body except healing facial injury.has per patient her left leg swelling is improving now Medications: Aspirin 1 Tablet (of 81 mg) Oral daily, Hydrocodone-Acetaminophen 1 - 2 (10-325 mg) Tablet Oral b.i.d. PRN, Lasix 1 Tablet (of 40 mg) Oral b.i.d., Metoprolol Tartrate 0.5 - 1 (25 mg) Tablet Oral b.i.d., Morphine Sulfate 1 (15 mg) Tablet Oral b.i.d. PRN, Omeprazole 1 (20 mg) Tablet, enteric coated Oral daily, Potassium Chloride ER 0.5 Tablet (of 20 ) Tablet, controlled release Oral daily Allergies: Darvocet, Erythromycin Base, Nitrobid, and Tetracycline HCl. Review of Systems: Review of Systems is not available for this patient. Vital Signs: Performed on Dec 16, 2019 13:42 Height - 64.00 in Weight - 119.2 lbs (HIGH) BSA - 1.57 sq.m BMI - 20.46 Temperature - 97.7 F (LOW) Pulse - 66 /min Respiration - 18 /min BP - 139/74 mm(hg) O2 Sat - 99 % Pain - 5 Performance Status: 2 - Ambulatory/capable of all self-care, unable to perform any work activities. Up and about more than 50% of waking hours. (ECOG) Physical Examination: ENMT - No oral exudates, ulcers, masses, thrush or mucositis. Oropharynx clear. Tongue normal.or healing facial ecchymosis, Respiratory - Lungs are clear to auscultation without rhonchi or wheezing, Cardiovascular - Regular rate and rhythm, Abdomen - Non-tender, non-distended, Good bowel sounds. No guarding or rebound tenderness. No pulsatile masses, Extremities - bilateral pedal edema left more than right with ecchymosis involving left knee and petechiae/rash on the left leg no pain or discharge no calf tenderness. Lab/Imaging: Test performed on Dec 02, 2019 11:45 WBC 4.9 10 3/uL RBC 3.26 10 6/uL HGB 10.9 g/dL HCT 33.9 % MCV 104.0 fL MCH 33.4 pg MCHC 32.2 g/dL RDW 22.1 % Platelet Count 57 10 3/cmm MPV 12.4 fL Neutrophils 2.8 10 3/uL Lymphocytes 1.4 10 3/uL Monocytes 0.5 10 3/uL Eosinophils 0.3 10 3/uL Basophils 0.0 10 3/uL Neutrophil % 56.4 % Lymphocyte % 28.3 % Monocyte % 9.2 % Eosinophil % 5.1 % Basophils % 0.8 % Test performed on Sep 15, 2019 10:10 Ferritin 83.0 ng/ml Iron 163 ug/dL % Iron Saturation 64.0 % UIBC 91 ug/dL Test performed on Jul 31, 2019 11:06 Flow Cytometry - Lymphoma SEE SCANNED REPORT SEE SCANNED REPORT Impression: asymptomatic, mild, stable isolated thrombocytopenia.Etiology unclear, could be low-grade ITP, hypersplenism due to underlying congestive heart failure, As bone marrow done recently showed appropriate response to thrombocytopenia e.g. increased megakaryocytes elevated total protein. Polyclonal elevation in gamma globulins ch renal insuff. Infrarenal AAA thoracic aoortic aneurysm chronic obstructiv pulmonary disease left renal atrophy CT scan performed 01/15/17 showed a suspicious pulmonary parenchymal nodule, anterior basal segment of the right lower lobe. Follow-up CT scan of chest abdomen pelvis done on 01/08/2019 showed persistent proximal left subclavian artery aneurysm and emphysema Hepatic cirrhosis again identified Abdominal sonogram done 05/12/2019 showed moderately severe changes of cirrhosis with no hepatic mass identified. Top normal spleen with granulomata Large abdominal aortic aneurysm stable Spleen, punctate splenic calcification, not mentioned about size of the spleen Plan: Discussed with patient regarding her labs white blood count 6.1 hemoglobin 10 hematocrit 31.9 platelets 56,000 compared to 57,000 on 11/27/2019 Clinically, patient is doing reasonably well now with left leg swelling and discoloration and ecchymosis involving left knee patient denies any history of fall or trauma to left leg, etiology remained unclear, patient is on morphine for chronic pain and use walker to negative. And she had recent history of fall sustaining facial injury so it could be due to trauma. Patient denies any fever or chills no tenderness in the leg venous Doppler study done recently showed no evidence of DVT. Patient was advised to continue conservative treatment with leg elevation and use ELVIS hose. If there is no improvement then we may consider surgical evaluation As far as thrombocytopenia is concern she was given trial of high-dose steroids but she did not respond so we will continue to monitor and she will return to clinic in one month with CBC patient was advised in case she has any evidence of bleeding and she to call us or go to hospital immediately. And if there is a worsening of left leg swelling, then she'll need to go emergency room or call us immediately. Signed By: Alhaji Lowe M.D. <<Signature on File>>
== END 2020-01-06 23:59 | disposition home or self-care (01) ==
LOC: ONCMED 05:49
PROVIDERS: Family Provider Family Medicine; PCP Family Medicine; Visit Provider Internal Medicine Hematology & Oncology
DX: D69.6 Thrombocytopenia, unspecified (principal); J43.9 Emphysema, unspecified; F17.210 Nicotine dependence, cigarettes, uncomplicated; M40.209 Unspecified kyphosis, site unspecified; I25.10 Atherosclerotic heart disease of native coronary artery without angina pectoris; I51.7 Cardiomegaly; I72.8 Aneurysm of other specified arteries; K44.9 Diaphragmatic hernia without obstruction or gangrene; I71.4 Abdominal aortic aneurysm, without rupture; R18.8 Other ascites; K74.60 Unspecified cirrhosis of liver; N18.9 Chronic kidney disease, unspecified; M79.89 Other specified soft tissue disorders; Z79.82 Long term (current) use of aspirin; Z79.891 Long term (current) use of opiate analgesic; Z79.899 Other long term (current) drug therapy; Z95.1 Presence of aortocoronary bypass graft; Z91.81 History of falling
CPT/HCPCS: 99214

== ENCOUNTER 2019-12-18 12:08 | Outpatient (CLI) | payer MEDICARE, MEDICAID, SELFPAY ==
--- NOTE | 2019-12-18 12:36 | US_ITS ---
WS: [id number] Bilateral renal ultrasound, Clinical Data: CKD STAGE 3 Comparison: None. Findings: The right kidney measures 11.5 cm x 5.0 cm x 5.1 cm and the left kidney is 6.1 cm x 2.6 cm x 3.1 cm. There is a small right renal cortical cyst measuring 0.48 x 0.86 x 0.95 cm. The abdominal aorta demonstrates a large aneurysm measuring 7.05 x 7.22 x 10.74 cm in AP, transverse and longitudinal dimension respectively. The bladder was scanned and was not remarkable. US/US renal BI* [id number] Impression: 1. Atrophic left kidney. 2. Increase in size of abdominal aortic aneurysm.
== END 2019-12-18 12:09 | disposition home or self-care (01) ==
LOC: US 12:20
PROVIDERS: Family Provider Family Medicine; PCP Family Medicine; Visit Provider Internal Medicine Nephrology
DX: N18.3 Chronic kidney disease, stage 3 (moderate) (principal); I71.4 Abdominal aortic aneurysm, without rupture
CPT/HCPCS: 76770

== ENCOUNTER 2020-01-13 06:40 | Outpatient (RCR) | payer MEDICARE, MEDICAID, SELFPAY ==
[2020-01-08 10:40] LABS: Basophils # 0.1 10^3/uL (0.0-0.1); Basophils % 1.2 %; Eosinophils # 0.3 10^3/uL (0.0-0.8); Eosinophils % 6.1 %; Hemoglobin 11.4 g/dL (11.5-15.3); Lymphocytes # 1.3 10^3/uL (0.8-4.8); Lymphocytes % 25.6 %; Mean Corpuscular HGB Conc 33.5 g/dL (30.0-36.0); Mean Corpuscular Hemoglobin 37.4 pg (28.0-34.0); Mean Corpuscular Volume 111.5 fL (81-99); Mean Platelet Volume 12.5 fL (7.4-10.4); Monocytes # 0.6 10^3/uL (0.2-0.9); Monocytes % 11.5 %; Neutrophils # 2.7 10^3/uL (1.8-7.7); Neutrophils % 55.4 %; Nucleated Red Blood Cells % 0 %; Platelet Count 62 10^3/cmm (130-400); Red Blood Count 3.05 10^6/uL (4.1-5.3); Red Cell Distribution Width 17.5 % (12.1-15.1); White Blood Count 4.9 10^3/uL (4.0-10.0)
--- NOTE | 2020-01-13 15:28 | ONC FU_ITS ---
Dr. Lowe follow up note Patient: Carolin Albarran Unit #: [id number]: [id number] Dicatated By: Alhaji Lowe M.D.Date of Visit:Jan 13, 2020 Onc Med Follow-up/Prog Note History of Present Illness: This 74 year old patient has emphysema and heart disease. She has had mild thrombocytopenia for 4 years. It appears to be non-progressive. and does not consume alcohol in excess. She does smoke approximately 1ppd cigarettes for >50 years. She had some hemoptysis 2 years ago and found to have an aneurysm. She has back pain from significant kyphosis. CT scan performed 01/15/17 showed a suspicious pulmonary parenchymal nodule, anterior basal segment of the right lower lobe. There was extensive atherosclerotic cardiovascular and peripheral vascular changes, which included: A) Cardiomegaly and prior coronary bypass grafting. 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 C) Aneurysms of the descending thoracic aorta. D) Supra and large infrarenal aneurysms of the abdominal aorta with the infrarenal aneurysm incompletely included. 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 Recently done CT scan of chest abdomen pelvis on 01/08/2019 showed right lower lobe and inferior right middle lobe infiltrate suspicious for pneumonia, moderate hiatal hernia, moderate centrilobular emphysema. Approximately 3 cm diameter aneurysm of proximal left subclavian artery again seen. Approximately 6 cm diameter juxtarenal and infrarenal abdominal aortic aneurysm without interval change since 01/19/2018 Low volume pelvic ascites Hepatic cirrhosis again seen. Punctate hepatic calcification. Next Spleen, punctate splenic calcification Patient was admitted to hospital on 01/08/2019 with acute congestive heart failure and her admission lab workup showed platelet count around 50,000 with a normal hemoglobin and white blood cells repeat labs at the time of discharge shows platelet count improved to 67,000 while maintaining white blood count and hemoglobin normal range. And her repeat CBC done on 01/23/2019 showed platelet count improved to baseline e.g. 94,000, with white blood count 6.4 hemoglobin 12.6 hematocrit 38.1. Abdominal sonogram done on 05/12/2019 showed moderately severe changes of cirrhosis with no hepatic mass identified. Top normal spleen with granulomata. Large abdominal aortic aneurysm, no change CTA abdomen/pelvis done on 04/05/2019 showed nodular shrunken contour of the liver compatible with cirrhosis numerous calcified granulomas in non-enlarged spleen. Large abdominal aortic aneurysm stable from 01/08/2019 Bone marrow aspiration and biopsy done on 07/31/2019 showed normocellular marrow for age with trilineage hematopoiesis. Next Mildly increased megakaryocytes, mild erythroid hyperplasia. No overt dyspoietic or megaloblastic changes seen Markedly decreased storage iron without getting sideroblasts slightly increased scattered polytypic plasma cells noted. But flow cytometry did not detect any aberrant plasma cell population MDS FISH Cytogenetic is normal findings. Patient had a fall and sustained facial injury with extensive ecchymosis and swelling, swelling is resolved. Patient denies any seizure-like activity patient says she was getting out of her bed and tip over her walker. Because of persistent moderate thrombocytopenia started on prednisone 50 mg by mouth daily along with nystatin swish and spit on 12/03/2019 , patient took it for 4 days, as per patient she developed left leg redness and swelling become more prominent she went to emergency room on 12/13/2019 with left knee ecchymosis and petechiae involving left leg only again patient has history of fall sustained facial injury and as per patient she felt on the right side at time and denies any trauma to left leg this time. In [facility] she underwent left leg venous Doppler study which showed no evidence of DVT. Evaluated via telemedicine, denies any specific complaints, more energetic, no fever or chills, no nausea or vomiting, no melena or hematochezia, no gum bleed. No jaundice. Medications: Aspirin 1 Tablet (of 81 mg) Oral daily, Hydrocodone-Acetaminophen 1 - 2 (10-325 mg) Tablet Oral b.i.d. PRN, Lasix 1 Tablet (of 40 mg) Oral b.i.d., Metoprolol Tartrate 0.5 - 1 (25 mg) Tablet Oral b.i.d., Morphine Sulfate 1 (15 mg) Tablet Oral b.i.d. PRN, Omeprazole 1 (20 mg) Tablet, enteric coated Oral daily, Potassium Chloride ER 0.5 Tablet (of 20 ) Tablet, controlled release Oral daily Allergies: Darvocet, Erythromycin Base, Nitrobid, and Tetracycline HCl. Review of Systems: Review of Systems is not available for this patient. Vital Signs: Vitals are not available for this patient. Performance Status: 2 - Ambulatory/capable of all self-care, unable to perform any work activities. Up and about more than 50% of waking hours. (ECOG) Physical Examination: ENMT - patient denies any mouth sores or thrush, Respiratory - patient denies any shortness of breath or wheezing, Cardiovascular - patient denies any tachycardia, Abdomen - patient denies any abdominal pain, Extremities - edema present bilaterally. Lab/Imaging: Test performed on Jan 08, 2020 08:25 WBC 4.9 10 3/uL RBC 3.05 10 6/uL HGB 11.4 g/dL HCT 34.0 % MCV 111.5 fL MCH 37.4 pg MCHC 33.5 g/dL RDW 17.5 % Platelet Count 62 10 3/cmm MPV 12.5 fL Neutrophils 2.7 10 3/uL Lymphocytes 1.3 10 3/uL Monocytes 0.6 10 3/uL Eosinophils 0.3 10 3/uL Basophils 0.1 10 3/uL Neutrophil % 55.4 % Lymphocyte % 25.6 % Monocyte % 11.5 % Eosinophil % 6.1 % Basophils % 1.2 % Test performed on Sep 15, 2019 10:10 Ferritin 83.0 ng/ml Iron 163 ug/dL % Iron Saturation 64.0 % UIBC 91 ug/dL Test performed on Jul 31, 2019 11:06 Flow Cytometry - Lymphoma SEE SCANNED REPORT SEE SCANNED REPORT Impression: asymptomatic, mild, stable isolated thrombocytopenia.Etiology unclear, could be low-grade ITP, hypersplenism due to underlying congestive heart failureand hepatic cirrhosis, As bone marrow done recently showed appropriate response to thrombocytopenia e.g. increased megakaryocytes elevated total protein. Polyclonal elevation in gamma globulins ch renal insuff. Infrarenal AAA thoracic aoortic aneurysm chronic obstructiv pulmonary disease left renal atrophy CT scan performed 01/15/17 showed a suspicious pulmonary parenchymal nodule, anterior basal segment of the right lower lobe. Follow-up CT scan of chest abdomen pelvis done on 01/08/2019 showed persistent proximal left subclavian artery aneurysm and emphysema Hepatic cirrhosis again identified Abdominal sonogram done 05/12/2019 showed moderately severe changes of cirrhosis with no hepatic mass identified. Top normal spleen with granulomata Large abdominal aortic aneurysm stable Spleen, punctate splenic calcification, not mentioned about size of the spleen Plan: Discussed with patient regarding her labs white blood count 4.9 hemoglobin 11.4 crit 34 platelets 62,000 Clinically, patient is doing well, with no new signs symptoms. Her follow-up lab shows improvement in her hemoglobin and stable moderate thrombocytopenia. Patient has no signs symptoms suggestive of gross bleeding, will continue to monitor and check her CBC in one month Signed By: Alhaji Lowe M.D. <<Signature on File>>
== END 2020-02-05 23:59 | disposition home or self-care (01) ==
LOC: ONCMED 06:40
PROVIDERS: Family Provider Family Medicine; PCP Family Medicine; Visit Provider Internal Medicine Hematology & Oncology
DX: D69.6 Thrombocytopenia, unspecified (principal); I71.4 Abdominal aortic aneurysm, without rupture; I25.10 Atherosclerotic heart disease of native coronary artery without angina pectoris; E03.9 Hypothyroidism, unspecified; I25.2 Old myocardial infarction; I73.9 Peripheral vascular disease, unspecified
CPT/HCPCS: 36415; 85025

== ENCOUNTER 2020-02-02 14:06 | Outpatient (CLI) | payer MEDICARE, MEDICAID, SELFPAY ==
--- NOTE | 2020-02-02 | US_ITS ---
WS: [id number] INDICATION: Lump on rib TECHNIQUE: Ultrasound soft tissue right anterior chest wall and area of concern. FINDINGS: Ultrasound right anterior chest wall and the area of concern. Hypoechoic nodule in the area of concern measuring 6.9 x 4.0 x 8.6 mm. No significant blood flow in this area. This lesion is subc utaneous in location. No abscess or drainable fluid collection. US/US chest [id number] IMPRESSION: Ultrasound right anterior chest wall demonstrate small hypoechoic n odule measuring 6.9 x 4.0 x 8.6 mm with no significant blood flow. This may be due to prior trauma but nonspecific. This lesion is subcutaneous and location a nd some considerations include small fibroma, dermoid, or fat poor lipoma.
== END 2020-02-02 14:07 | disposition home or self-care (01) ==
LOC: RADOUTREAD 02-03 07:50
PROVIDERS: Family Provider Family Medicine; PCP Family Medicine; Visit Provider Family Medicine
DX: M89.9 Disorder of bone, unspecified (principal); R22.2 Localized swelling, mass and lump, trunk
CPT/HCPCS: 76604

== ENCOUNTER 2020-02-14 13:31 | Emergency (ER) | payer MEDICARE, MEDICAID, SELFPAY ==
[2020-02-14 13:34] VITALS: BP 189/88; PULSE 64; RESP 14; TEMP 36.4; O2SAT 97; BMI 20.5
--- NOTE | 2020-02-14 13:49 | XR_ITS ---
WS: [id number] XR chest 1V portable [id number] REASON FOR EXAM: confusion FINDINGS: Cardiomegaly is noted Previous coronary bypass changes are seen. A hiatal hernia is noted. There is evidence of ectasia of the descending thoracic aorta. There is arteriosclerotic changes in the arch of the aorta. Comparisons were made to previous exam of September 25, 2019. We again note a reticular pattern sugges ting chronic interstitial disease. XR/XR chest 1V portable [id number] IMPRESSION: Arteriosclerotic heart disease Tortuous descending thoracic aorta Previous coronary bypass changes Interstitial pulmonary fibrosis.
--- NOTE | 2020-02-14 13:51 | ECG_ITS ---
Measurements Intervals [place] Rate: 58 P: 31 CO: 123 QRS: -30 QRSD: 92 T: 121 QT: 441 QTc: 436 SINUS BRADYCARDIA BORDERLINE LEFT AXIS DEVIATION [QRS AXIS < -20] NONSPECIFIC ST & T-WAVE ABNORMALITY Compared to ECG 09/25/2019 11:55:01 Sinus rhythm no longer present Short CO interval no longer present Possible ischemia no longer present T-wave abnormality still present Electronically Signed On 02-15-2020 19:55:52 CDT by Claudia Mar M.D. [email or web address]
--- NOTE | 2020-02-14 13:55 | ED_ITS ---
HPI - Altered Mental Status General: Chief Complaint: Altered Mental Status Stated Complaint: LETHARGY Time Seen by Provider: 02/14/20 13:39 Source: patient and EMS Mode of arrival: EMS History of Present Illness: HPI narrative: Patient is a 74-year-old female patient who presents with confusion. Her past medical history includes hypertension, prior CABG. She states that last night she was confused for no reason and kept walking around around her house and because of this she did not get any sleep. She is uncertain when this resolved but at this present time she is not confused and is back to her baseline. She denies any fever, denies any falls, denies any dizziness. She denies any chest pain or shortness of breath. MD complaint: confusion Onset (ago): hour(s) (12) Review of Systems General: Reports: 10 or more systems reviewed and unremarkable except in HPI and below Const: Denies: fever, chills or body aches Eyes: Denies: change in vision or blurry vision ENMT: Denies: throat pain, enlarged tonsils, painful swallowing, hoarseness, mouth pain or swelling of lips/tongue Card: Denies: chest pain, palpitations, irregular heart rhythm, edema or swelling of feet/ankles Resp: Denies: shortness of breath, productive cough or non-productive cough GI: Denies: abdominal pain, nausea or vomiting : Denies: flank pain, difficulty urinating, painful urination, urinary frequency, urinary urgency or urinary hesitancy Musc: Denies: neck pain, back pain or extremity swelling Neuro: Denies: headache, numbness in extremities or weakness in extremities Endo: Denies: excessive urination, excessive thirst or tired all the time [facility] PFSH: Social History Smoking and tobacco status: current every day smoker Physical Exam Const: COMMON NORMALS: no apparent distress, average body habitus, oriented x3, no limitations, healthy appearing, alert and well nourished HENMT: COMMON NORMALS: normocephalic, head/scalp atraumatic and moist oral mucous membranes HEAD & SCALP: normocephalic and atraumatic Eye: COMMON NORMALS: PERRL, EOMs intact bilaterally, conjunctivae normal and no scleral icterus CONJUNCTIVA: Yes conjunctivae normal PUPIL: Yes PERRL Neck/C-Spine: COMMON NORMALS: full ROM, supple, no meningeal signs, no JVD and no carotid bruits Chest: COMMONS NORMALS: inspection of chest normal and palpation of chest normal Resp: COMMON NORMALS: normal respiratory effort, no retractions, no use of accessory muscles, clear to auscultation bilaterally and percussion normal AUSCULTATION: clear to auscultation bilaterally PERCUSSION: percussion normal Cardio: COMMON NORMALS: no JVD, regular rate, regular rhythm, S1 normal heart sound, S2 normal heart sound, no gallops, no clicks, no murmurs, no rub and peripheral pulses 2+ throughout RATE: regular rate RHYTHM: regular rhythm HEART SOUNDS: S1 normal and S2 normal PERIPHERAL PULSES: pulses 2+ throughout GI: COMMON NORMALS: normal to inspection, nondistended, normoactive bowel sounds, soft to palpation, non-tender, no hepatosplenomegaly, no masses and no bruits PALPATION: Yes soft and Yes no hepatosplenomegaly : COMMON NORMALS: Yes no CVA tenderness BLADDER/KIDNEY EXAM: Yes no CVA tenderness Back/Pelvis: COMMON NORMALS: no CVA tenderness Extremity: COMMON NORMALS: normal to inspection, full ROM, normal capillary refill, no calf tenderness and no pedal edema Neuro: COMMON NORMALS: oriented x3 SENSORIUM/ORIENTATION: Yes alert MENINGEAL SIGNS: Yes no meningeal signs OTHER: NIHSS score of 0 Skin: COMMON NORMALS: no rashes or lesions noted, no wounds, skin turgor normal, no jaundice, no petechiae and no mottling GENERAL SKIN EXAM: no rashes or lesions noted and turgor normal Course Reevaluation(s): Reevaluation #1: Discussed her lab and imaging findings with her. Negative for acute findings. UA suggestive of UTI. Head CT unlikely to be an acute CVA. The patient requests to be discharged home. We will discharge her home. She is alert and oriented and able to make sound medical decisions. Time: 17:41 Vital Signs: Vital signs: Vital Signs Temperature 97.6 F 02/14/20 13:34 Pulse Rate 78 02/14/20 18:34 Respiratory Rate 12 02/14/20 18:34 Blood Pressure 165/93 02/14/20 18:34 Pulse Oximetry 95 02/14/20 18:34 MDM - Altered Mental Status MDM Narrative: Medical decision making narrative: 74-year-old female patient who presented to the emergency department because she had an episode of confusion yesterday. Confusion has resolved. Evaluation in the ED only showed a UTI. She is therefore discharged home on oral antibiotics after she received an IV dose of ceftriaxone. Medical Records: Attestation: I reviewed the patient's medical records. Lab Data: Labs: Lab Results 02/14/20 02/14/20 02/14/20 Range/Units 14:10 14:10 14:10 WBC 3.9 L (4.0-10.0) 10^3/ uL RBC 3.52 L (4.1-5.3) 10^6/u L Hgb 14.1 (11.5-15.3) g/dL Hct 39.3 (37.0-47.0) % MCV 111.6 H (81-99) fL MCH 40.1 H (28.0-34.0) pg MCHC 35.9 (30.0-36.0) g/dL RDW 19.0 H (12.1-15.1) % Plt Count 43 L (130-400) 10^3/c mm MPV 10.8 H (7.4-10.4) fL Neut % (Auto) 60.1 % Lymph % (Auto) 27.0 % [place] % (Auto) 9.9 % Eos % (Auto) 2.0 % Baso % (Auto) 1.0 % Neut # (Auto) 2.4 (1.8-7.7) 10^3/u L Lymph # (Auto) 1.1 (0.8-4.8) 10^3/u L [place] # (Auto) 0.4 (0.2-0.9) 10^3/u L Eos # (Auto) 0.1 (0.0-0.8) 10^3/u L Baso # (Auto) 0.0 (0.0-0.1) 10^3/u L Nucleated RBC % (a uto) 0 % Nucleated RBCs # 0.0 /100WBC Sodium 138 (136-145) mmol/L Potassium 4.3 (3.5-5.1) mmol/L Chloride 98 (98-107) mmol/L Carbon Dioxide 26 (22-29) mmol/L Anion Gap 18.3 (5-19) BUN 39 H (8-23) mg/dL Creatinine 2.0 H (0.5-0.9) mg/dL Glucose 104 (65-115) mg/dL Calculated Osmolal ity 284 L (285-295) mOsm/k g Lactate (0.5-2.2) mmol/L Calcium 9.4 (8.5-10.5) mg/dL Total Bilirubin 1.0 (0.15-1.2) mg/dL AST 34 H (0-32) U/L ALT 13 (0-33) U/L Alkaline Phosphata se 99 (35-105) IU/L C-Reactive Protein 12.9 H (0.0-4.9) mg/L NT-Pro-B Natriuret Pep 2670 H (0-125) pg/mL Total Protein 9.8 H (6.6-8.7) g/dL Albumin 3.8 (3.5-5.2) g/dL Globulin 6.0 H (1.3-4.6) g/dL Lipase 20 (13-60) U/L Urine Color Yellow (Yellow) Urine Appearance Sl hazy (CLEAR) Urine pH 9 H (5-7) Ur Specific Gravit y 1.010 (1.005-1.030) Urine Protein Neg (Negative) Urine Glucose (UA) Norm (Normal) Urine Ketones Negative (Negative) Urine Blood Neg (Negative) Urine Nitrate Negative (Negative) Urine Bilirubin Neg (NEGATIVE) Prot Sulfosalicyli c Acd Negative (Negative) Urine Urobilinogen Norm (Negative) mg/dL Ur Leukocyte Rosina ase 2+ H (Negative) Urine RBC None (0-2) /hpf Urine WBC 25-40 H (0-5) /hpf Ur Squamous Epith Cells 0-4 H (0-5) Urine Bacteria 4+ H (NONE) Urine Mucus 1+ /06/27 Range/Units 15:04 WBC (4.0-10.0) 10^3/ uL RBC (4.1-5.3) 10^6/u L Hgb (11.5-15.3) g/dL Hct (37.0-47.0) % MCV (81-99) fL MCH (28.0-34.0) pg MCHC (30.0-36.0) g/dL RDW (12.1-15.1) % Plt Count (130-400) 10^3/c mm MPV (7.4-10.4) fL Neut % (Auto) % Lymph % (Auto) % [place] % (Auto) % Eos % (Auto) % Baso % (Auto) % Neut # (Auto) (1.8-7.7) 10^3/u L Lymph # (Auto) (0.8-4.8) 10^3/u L [place] # (Auto) (0.2-0.9) 10^3/u L Eos # (Auto) (0.0-0.8) 10^3/u L Baso # (Auto) (0.0-0.1) 10^3/u L Nucleated RBC % (a uto) % Nucleated RBCs # /100WBC Sodium (136-145) mmol/L Potassium (3.5-5.1) mmol/L Chloride (98-107) mmol/L Carbon Dioxide (22-29) mmol/L Anion Gap (5-19) BUN (8-23) mg/dL Creatinine (0.5-0.9) mg/dL Glucose (65-115) mg/dL Calculated Osmolal ity (285-295) mOsm/k g Lactate 2.0 (0.5-2.2) mmol/L Calcium (8.5-10.5) mg/dL Total Bilirubin (0.15-1.2) mg/dL AST (0-32) U/L ALT (0-33) U/L Alkaline Phosphata se (35-105) IU/L C-Reactive Protein (0.0-4.9) mg/L NT-Pro-B Natriuret Pep (0-125) pg/mL Total Protein (6.6-8.7) g/dL Albumin (3.5-5.2) g/dL Globulin (1.3-4.6) g/dL Lipase (13-60) U/L Urine Color (Yellow) Urine Appearance (CLEAR) Urine pH (5-7) Ur Specific Gravit y (1.005-1.030) Urine Protein (Negative) Urine Glucose (UA) (Normal) Urine Ketones (Negative) Urine Blood (Negative) Urine Nitrate (Negative) Urine Bilirubin (NEGATIVE) Prot Sulfosalicyli c Acd (Negative) Urine Urobilinogen (Negative) mg/dL Ur Leukocyte Rosina ase (Negative) Urine RBC (0-2) /hpf Urine WBC (0-5) /hpf Ur Squamous Epith Cells (0-5) Urine Bacteria (NONE) Urine Mucus Imaging Data^: CXR: Radiologist's impression: [place] [address] XRay Report Signed Patient: Carolin Albarran #: [id number] : 1945cct#:[id number] Age/Sex: 74 / FADM Date: 02/14/20 Loc: ERRoom/Bed: Attending Dr: Ordering Provider/Ordering MD: Aydin Lezama MD, [facility] Date of Service: 02/14/20 Procedure(s): XR chest 1V portable [id number] Accession Number(s): [id number] Report Number: [id number] WS: [id number] XR chest 1V portable [id number] REASON FOR EXAM: confusion FINDINGS: Cardiomegaly is noted Previous coronary bypass changes are seen. A hiatal hernia is noted. There is evidence of ectasia of the descending thoracic aorta. There is arteriosclerotic changes in the arch of the aorta. Comparisons were made to previous exam of September 25, 2019. We again note a reticular pattern suggesting chronic interstitial disease. XR/XR chest 1V portable [id number] IMPRESSION: Arteriosclerotic heart disease Tortuous descending thoracic aorta Previous coronary bypass changes Interstitial pulmonary fibrosis. CT Head: Radiologist's impression: [place] [address] CT Scan Report Signed Patient: Carolin Albarran #: [id number] : 1945cct#:[id number] Age/Sex: 74 / FADM Date: 02/14/20 Loc: ERRoom/Bed: Attending Dr: Ordering Provider/Ordering MD: Aydin Lezama MD, [facility] Date of Service: 02/14/20 Procedure(s): CT head wo con* [id number] Accession Number(s): [id number] Report Number: [id number] PROCEDURE INFORMATION: Exam: CT Head Without Contrast Exam date and time: 02/14/2020 5:00 PM Age: 74 years old Clinical indication: Other: Confusion; Additional info: AMS TECHNIQUE: Imaging protocol: Computed tomography of the head without contrast. Radiation optimization: All CT scans at this facility use at least one of these dose optimization techniques: automated exposure control; mA and/or kV adjustment per patient size (includes targeted exams where dose is matched to clinical indication); or iterative reconstruction. COMPARISON: CT head wo con* [id number] 11/08/2019 3:29 AM FINDINGS: Examination is limited by artifacts from patient motion. There is moderate low density in the bilateral periventricular white matter which may represent chronic small vessel ischemic disease in the appropriate clinical setting. The possibility of superimposed acute infarctions cannot be excluded; consider MRI brain (including diffusion images) for further assessment if clinically warranted and if patient has no contraindication to MRI. There are prominent intracranial arterial calcifications. There is mild cerebral cortical volume loss. Ventricles do not appear significantly dilated. No depressed calvarial fracture is demonstrated. Visualized paranasal sinuses and mastoid air cells demonstrate no significant opacification. CT/CT head wo con* [id number] IMPRESSION: Probable chronic ischemic changes as discussed above. Total DLP: 738.29 mGy-cm Radiation Dose CTDIVOL = (mGy): DLP = 738.29 (mGy-cm) Dictated By:Heaven Lamb MD Signed By:Heaven Lamb MDSigned Date/Time:02/14/20 2289 EKG Data^: EKG 1: Attestation: I personally reviewed and interpreted this EKG as follows: EKG interpretation date: 02/14/20 EKG interpretation time: 14:06 Prior EKG tracings: not available for review Computer generated interpretation: sinus bradycardia. HR [address] changes LAD Discharge Plan Discharge Patient Disposition: Home, Self-Care Clinical Impression: Acute dehydration Altered mental status Qualifiers: Altered mental status type: transient alteration of awareness Qualified Code(s): R40.4 - Transient alteration of awareness Urinary tract infection Qualifiers: Urinary tract infection type: acute cystitis Hematuria presence: without hematuria Qualified Code(s): N30.00 - Acute cystitis without hematuria Condition: Stable Prescriptions: New Augmentin 875-125 mg tablet 1 tab PO BID Qty: 10 RF: 0 Discharge Orders: Discharge Order (Routine); Ordered 02/14/20 Ordered By: Aydin Lezama Referrals: Og Avery MD [Primary Care Provider] - 1-3 days Patient Instructions: Dehydration (ED), Urinary Tract Infection in Women (ED), Altered Mental Status (ED) Activity Restrictions/Additional Instructions: Return for any new or worsening symptoms. Follow-up with your primary care provider within 3 days. Take antibiotic as prescribed Discharge Date/Time: 02/14/20 19:17 Coding Level of Care Code ED Respiratory Care Practitioner for Chg Fwd Exam Comprehensive
--- NOTE | 2020-02-14 14:18 | PC.NURSE ---
EKG done at 1400 and shown to ER doctor
[2020-02-14 14:20] LABS: Eosinophils # 0.1 10^3/uL (0.0-0.8); Hematocrit 39.3 % (37.0-47.0); Hemoglobin 14.1 g/dL (11.5-15.3); Lymphocytes # 1.1 10^3/uL (0.8-4.8); Mean Corpuscular HGB Conc 35.9 g/dL (30.0-36.0); Mean Corpuscular Hemoglobin 40.1 pg (28.0-34.0); Mean Corpuscular Volume 111.6 fL (81-99); Mean Platelet Volume 10.8 fL (7.4-10.4); Monocytes # 0.4 10^3/uL (0.2-0.9); Monocytes % 9.9 %; Neutrophils # 2.4 10^3/uL (1.8-7.7); Neutrophils % 60.1 %; Nucleated Red Blood Cells % 0 %; Platelet Count 43 10^3/cmm (130-400); Red Blood Count 3.52 10^6/uL (4.1-5.3); White Blood Count 3.9 10^3/uL (4.0-10.0)
[2020-02-14 14:29] LABS: Urine Appearance SL Hazy (CLEAR); Urine Color Yellow (Yellow)
[2020-02-14 14:30] LABS: Add Urine Microscopic? YES; Bilirubin Urine Neg (NEGATIVE); Blood Urine Neg (Negative); Glucose Urine UA Norm (Normal); Ketones Urine Negative (Negative); Leukocyte Esterase Urine 2+ (Negative); Nitrate Urine Negative (Negative); Protein Urine Neg (Negative); Sulfosalicylic Acid Urine Negative (Negative); Urobilinogen Urine Norm (Negative); pH Urine 9 (5-7)
[2020-02-14 14:31] LABS: Bacteria Urine 4+; Squamous Epithelial Cell Urine 0-4 (0-5); WBC Urine 25-40 /hpf (0-5)
[2020-02-14 14:32] LABS: Add Urine Culture? Yes; Mucus Urine 1+
[2020-02-14 14:48] LABS: Alanine Aminotransferase 13 U/L (0-33); Albumin Level 3.8 g/dL (3.5-5.2); Alkaline Phosphatase 99 IU/L (35-105); Anion Gap 18.3 (5-19); Blood Urea Nitrogen 39 mg/dL (8-23); C Reactive Protein 12.9 mg/L (0.0-4.9); Calcium 9.4 mg/dL (8.5-10.5); Carbon Dioxide 26 mmol/L (22-29); Chloride 98 mmol/L (98-107); Glucose 104 mg/dL (65-115); Lipase 20 U/L (13-60); NT Pro B Type Natriuretic Pept 2670 pg/mL (0-125); Osmolality Calculated 284 mOsm/kg (285-295); Potassium 4.3 mmol/L (3.5-5.1); Sodium 138 mmol/L (136-145); Total Protein 9.8 g/dL (6.6-8.7)
[2020-02-14 14:50] VITALS: BP 189/85; PULSE 60; RESP 14; O2SAT 92
[2020-02-14 15:30] LABS: Aspartate Amino Transferase 34 U/L (0-32)
[2020-02-14 15:58] VITALS: BP 185/95; PULSE 61; RESP 14; O2SAT 94
[2020-02-14] MEDS: cefTRIAXone 1,000 MG in sodium chloride 0.9% (plus) 50 ML 100 MG IV (16:16)
--- NOTE | 2020-02-14 16:42 | CTR_ITS ---
PROCEDURE INFORMATION: Exam: CT Head Without Contrast Exam date and time: 02/14/2020 5:00 PM Age: 74 years old Clinical indication: Other: Confusion; Additional info: AMS TECHNIQUE: Imaging protocol: Computed tomography of the head without contrast. Radiation optimization: All CT scans at this facility use at least one of these dose optimization techniques: automated exposure control; mA and/or kV adjustment per patient size (includes targeted exams where dose is matched to clinical indication); or iterative reconstruction. COMPARISON: CT head wo con* [id number] 11/08/2019 3:29 AM FINDINGS: Examination is limited by artifacts from patient motion. There is moderate low density in the bilateral periventricular white matter which may represent chronic small vessel ischemic disease in the appropriate clinical setting. The possibility of superimposed acute infarctions cannot be excluded; consider MRI brain (including diffusion images) for further assessment if clinically warranted and if patient has no contraindication to MRI. There are prominent intracranial arterial calcifications. There is mild cerebral cortical volume loss. Ventricles do not appear significantly dilated. No depressed calvarial fracture is demonstrated. Visualized paranasal sinuses and mastoid air cells demonstrate no significant opacification. CT/CT head wo con* [id number] IMPRESSION: Probable chronic ischemic changes as discussed above. Total DLP: 738.29 mGy-cm Radiation Dose CTDIVOL = (mGy): DLP = 738.29 (mGy-cm)
[2020-02-14 17:21] VITALS: BP 190/84; PULSE 61; RESP 12; O2SAT 94
[2020-02-14 18:34] VITALS: BP 165/93; PULSE 78; RESP 12; O2SAT 95
== END 2020-02-14 19:17 | disposition home or self-care (01) ==
PROVIDERS: Emergency Provider Family Medicine; PCP Family Medicine
DX: R40.4 Transient alteration of awareness (principal); N30.00 Acute cystitis without hematuria; F17.210 Nicotine dependence, cigarettes, uncomplicated
CPT/HCPCS: 12345; 70450; 71045; 80053; 81001; 83605; 83690; 83880; 85025; 86140; 87077; 87086; 87186; 93005; 96374; 99283; 99284; J0696